=== PATIENT | female | born 1980 | race Caucasian/White ===

== ENCOUNTER 2017-05-22 23:13 | Observation (INO) | payer BC ==
[~2017-05-22] VITALS: Ht 157.5 cm; Wt 61.4 kg
[2017-05-22] MEDS ORDERED: BUSPIRONE HCL5 MG PO (23:28)
[2017-05-22] MEDS ORDERED: ADENOSINE 6 MG/2 ML VIAL IV ONE (23:30)
[2017-05-22] MEDS ORDERED: ASPIRIN 81 MG CHEW TAB PO STA (23:37)
[2017-05-22] MEDS ORDERED: SODIUM CHLORIDE 0.9% 1000ML 1,000 ML ONE (23:37)
[2017-05-22 23:38] LABS: BASOPHILS # (AUTO) 0.1 (0.0-0.1); BASOPHILS % 0.6 % (0.0-1.0); EOSINOPHILS # (AUTO) 0.2 (0.0-0.4); HEMATOCRIT 41.4 % (34.2-44.1); HEMOGLOBIN 14.1 g/dL (12.0-16.0); LYMPHOCYTES # (AUTO) 4.7 (1.0-3.2); MEAN CORPUSCULAR HEMOGLOBIN 29.3 pg (28-32); MEAN CORPUSCULAR HGB CONC 34.1 g/dL (31-35); MEAN CORPUSCULAR VOLUME 86.1 fL (81-99); MONOCYTES # (AUTO) 0.9 (0.2-0.8); MONOCYTES % 8.2 % (4.4-11.3); NEUTROPHILS # (AUTO) 5.2 (2.1-6.9); NEUTROPHILS % 46.9 % (38.7-80.0); PLATELET COUNT 334 x10e3/uL (140-360); RED BLOOD COUNT 4.81 x10e6/uL (3.6-5.1); RED CELL DISTRIBUTION WIDTH 13.3 % (11.7-14.4)
[2017-05-22] MEDS ORDERED: ASPIRIN 81 MG CHEW TAB ONE (23:45)
[2017-05-22] MEDS ORDERED: SODIUM CHLORIDE 0.9% 1000ML 1,000 ML IV ONE (23:45)
[2017-05-22] MEDS ORDERED: METOPROLOL TARTRATE INJ 1 MG/ML VIAL IV ONE (23:45)
[2017-05-22 23:50] LABS: MAGNESIUM 2.6 MG/DL (1.3-2.1)
[2017-05-22 23:57] LABS: ALANINE AMINOTRANSFERASE 15 IU/L (0-55); ALBUMIN 4.6 g/dL (3.5-5.0); ALBUMIN/GLOBULIN RATIO 1.5 (0.8-2.0); ALKALINE PHOSPHATASE 52 IU/L (40-150); ANION GAP 16.8 mmol/L (8-16); BLOOD UREA NITROGEN 16 mg/dL (7-26); BUN/CREATININE RATIO 22 (6-25); CALCIUM 9.5 mg/dL (8.4-10.2); CARBON DIOXIDE 20 mmol/L (22-29); CHLORIDE 106 mmol/L (98-107); CREATINE KINASE 176 IU/L (29-168); CREATININE, SERUM 0.73 mg/dL (0.57-1.11); EST GLOMERULAR FILTRATION RATE > 60 ML/MIN (60-); GLUCOSE 84 mg/dL (74-118); POTASSIUM 3.8 mmol/L (3.5-5.1); SODIUM 139 mmol/L (136-145)
[2017-05-23] MEDS: ACETAMINOPHEN 325 MG TAB PO PRN ×2 (00:03→09:05)
--- NOTE | 2017-05-23 00:07 | Diagnostic Imaging Report ---
EXAM: CHEST SINGLE (PORTABLE), AP 1 view INDICATION: Heart palpitations COMPARISON: None FINDINGS: LINES/TUBES: None LUNGS: No consolidations or edema. PLEURA: No effusions or pneumothorax. HEART AND MEDIASTINUM: Normal size and contour. BONES AND SOFT TISSUES: No acute findings. IMPRESSION: No acute thoracic abnormality. Signed by: Dr. Celina Robledo M.D. on 05/23/2017 12:03 AM
[2017-05-23 00:31] LABS: FREE THYROXINE INDEX 1.8611 (1.4-3.8); THYROID STIMULATING HORMONE 1.771 uIU/mL (0.350-4.940)
[2017-05-23] MEDS ORDERED: ONDANSETRON HCL INJ 2 MG/ML VIAL IV PRN (00:45)
[2017-05-23] MEDS ORDERED: ASPIRIN 81 MG CHEW TAB PO ONE (00:45)
[2017-05-23] MEDS ORDERED: SODIUM CHLORIDE FLUSH 10 ML SYR INJ PRN (00:45)
[2017-05-23] MEDS ORDERED: METOPROLOL TARTRATE 25 MG TAB PO SCH ×2 (00:45→09:00)
[2017-05-23] MEDS ORDERED: ONDANSETRON HCL INJ 2 MG/ML VIAL IV STA (01:02)
[2017-05-23] MEDS ORDERED: MORPHINE SULFATE 2 MG/ML SYR IV STA (01:02)
--- OUTSIDE RECORDS SUMMARY | 2017-05-23 01:07 | XMS REPORT ---
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 Allergies, Adverse Reactions, Alerts This patient has no known allergies or adverse reactions. Medications This patient has no known medications. Results Test Description Test Time Test Comments Text Results Atomic Results Result Comments CHEST SINGLE (PORTABLE) [place] [address] Patient Name: ILIANA BURNETT MR #: [id number] : 1980 Age/Sex: 36/F Req #: [id number] Adm Physician: Ordered by: WYATT PERSON MD Report #: [id number] Location: ER Room/Bed: Procedure: [id number] DX/CHEST SINGLE (PORTABLE) Exam Date: Exam Time: REPORT STATUS: Signed EXAM: CHEST SINGLE (PORTABLE ), AP 1 view INDICATION: Heart palpitations COMPARISON: None FINDINGS: LINES/TUBES: None LUNGS: No consolidations or edema. PLEURA: No effusions or pneumothorax. HEART AND MEDIASTINUM: Normal size and contour. BONES AND SOFT TISSUES: No acute findings. IMPRESSION: No acute thoracic abnormality. Signed by: Dr. Namita Arnold M.D. on 2017 12:03 AM Dictated By: NAMITA ARNOLD MD 0003 Transcribed By: ALISA on 05/23/17 0003 COPY TO: WYATT PERSON MD
[2017-05-23] MEDS ORDERED: METOPROLOL TARTRATE INJ 1 MG/ML VIAL IV ONE (01:15)
[2017-05-23] MEDS ORDERED: DIPHENHYDRAMINE HCL INJ 50 MG/ML VIAL ONE (01:58)
[2017-05-23] MEDS ORDERED: DIPHENHYDRAMINE HCL INJ 50 MG/ML VIAL IV ONE (02:00)
[2017-05-23] MEDS ORDERED: SODIUM CHLORIDE 0.9% 100 ML ONE (02:17)
[2017-05-23] MEDS ORDERED: IOPAMIDOL 370 MG/ML 200 ML INFUS..BTL INJ ONE (02:17)
--- NOTE | 2017-05-23 02:36 | Diagnostic Imaging Report ---
EXAM: CTA of the aorta with IV contrast INDICATION: Heart palpitations COMPARISON: None TECHNIQUE: Multidetector CT scanning of the chest was performed. Coronal and sagittal multiplanar reformations were obtained. CTA aorta protocol performed. 3-D reformations created on a separate workstation. IV Contrast: 100 cc Isovue-370 CTDIvol has been reviewed. It is below the limits set by the Radiation Protocol Committee (RPC). FINDINGS: LUNGS AND AIRWAYS: The trachea and major bronchi are unremarkable. No consolidations or edema. PLEURA: No effusions or pneumothorax. HEART, MEDIASTINUM, VESSELS: Normal. No evidence of a thoracic aortic dissection or aneurysm. UPPER ABDOMEN: Normal MUSCULOSKELETAL: No acute findings. Bilateral breast implants. IMPRESSION: Normal CTA of the chest. No evidence of an aortic dissection or aneurysm. Signed by: Dr. Celina Robledo M.D. on 05/23/2017 2:33 AM
[2017-05-23 03:05] VITALS: BP 127/59
[2017-05-23 03:30] VITALS: BP 127/59
[2017-05-23] MEDS: MORPHINE SULFATE 2 MG/ML SYR IV PRN ×2 (03:45→11:40)
[2017-05-23] MEDS: ONDANSETRON HCL INJ 2 MG/ML VIAL IV PRN ×2 (03:45→11:40)
[2017-05-23 05:00] VITALS: BP 121/59
[2017-05-23 07:47] VITALS: BP 125/59
[2017-05-23 08:51] LABS: CREATINE KINASE MB 6.9 ng/mL (0-5.0)
--- NOTE | 2017-05-23 10:25 | History and Physical ---
CHIEF COMPLAINT: Shortness of breath and dizziness. HPI: Ms. Brooks is a 36-year-old female who presented to the emergency room with dizziness and presyncopal episode. The patient was taking a bath and started having dizzy spell. She was found to be in SVT, and she received adenosine in the emergency room. She still has episodes of SVT. The patient reports that since she was 21 years of age she had episodes of dizziness where her heart rate jumps to very high and then it becomes normal. This time it was to a point that she started feeling dizzy. She came to the emergency room. She denies any chest pain, nausea, vomiting, or diarrhea. She is a smoker for 17 years of 1-pack per day. In the remote past around 20 years ago, she has used cocaine. No recent drug use. Drinks every day a couple of beers, but no history of heavy drinking. REVIEW OF SYSTEMS GENERAL: Denies any fever or chills. HEENT: Denies any head trauma. ENT: Denies any earaches. CV: Having dizziness but no shortness of breath or chest pain. RESPIRATORY: No shortness of breath. GI: Denies any nausea or vomiting. The rest of the review of systems are negative except as in HPI. PAST MEDICAL HISTORY: None. PAST SURGICAL HISTORY: None. FAMILY AND SOCIAL HISTORY: She lives with her . She has children. 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 She is a smoker. Occasionally drinks. PHYSICAL EXAMINATION VITAL SIGNS: Temperature 97.9, pulse 76, blood pressure 145/60, respiratory rate 18, O2 sat 96% on room air. SKIN: Warm and dry. HEENT: Head is atraumatic and normocephalic. Pupils reactive. NECK: Supple. CHEST: Clear to auscultation bilaterally. No wheezing. No crackles. HEART: S1 and S2 audible. ABDOMEN: Soft, nontender and nondistended. EXTREMITIES: No clubbing, cyanosis or edema. NEUROLOGIC: Awake and alert. No focal neurological deficits. LABS: White count of 11,000, hemoglobin 14.1 and platelets 334,000. Chemistry is within normal limits. Troponin 0.887. This morning it was 6.9. CK-MB has gone up from before. TSH and T4 has been normal. CTA of the chest is showing no dissection. ASSESSMENT AND PLAN: Ms. Brooks is a 36-year-old female with episodes of supraventricular tachycardia, high troponin that has been going on for 10+ years, but now getting worse. PLAN 1. Cardiology consult. I have discussed the case with Dr. Grijalva. She will evaluate the patient. May need electrophysiology evaluation. 2. Continue the patient on Tylenol and metoprolol for now. Discussed with the patient's at bedside in detail. Job#: [id number] FILIPPO
[2017-05-23 11:17] VITALS: BP 118/72
--- NOTE | 2017-05-23 14:10 | Consultation ---
DATE OF CONSULTATION: May 23, 2017 CARDIOLOGY CONSULTATION REQUESTING PHYSICIAN: Dr. Ortega. REASON FOR CONSULTATION: Chest pain and supraventricular tachycardia. HISTORY OF PRESENT ILLNESS: This is a 36-year-old woman without significant past medical history, who presented with complaints of palpitations, shortness of breath and presyncope. The patient reports that she has had multiple episodes of palpitations and presyncope since her 20s. However, no arrhythmias have ever been captured on EKG. She was evaluated at one time by a picture booker several years ago with a normal echocardiogram and stress test. Yesterday she developed palpitations associated with shortness of breath and presyncope. This time she had chest pain as well. The episode lasted 30 to 45 minutes and did not spontaneously resolve like usual; so, she presented to the ER for further evaluation. She denies any edema, orthopnea or PND. In the ER, she was found to have a supraventricular tachycardia with heart rates in the 200s. She was given 6 mg of IV adenosine with conversion back to normal sinus rhythm. REVIEW OF SYSTEMS: Negative except as per HPI. PAST MEDICAL HISTORY: None. PAST SURGICAL HISTORY 1. Tubal ligation. 2. Breast implant. SOCIAL HISTORY: Smokes approximately 1 pack a day since the age of 15. Occasional alcohol and remote cocaine use. FAMILY HISTORY: Noncontributory. ALLERGIES: PLEASE SEE EMR. MEDICATIONS: Please see medication list. PHYSICAL EXAMINATION VITAL SIGNS: Temperature 97.5 degrees, pulse 64, respiratory rate 20, blood pressure 118/72, oxygen saturation 100% on room air. GENERAL: A well-developed, well-nourished woman in no acute distress. Awake and alert. HEENT: Normocephalic, atraumatic. Pupils equal, no scleral icterus. NECK: Supple. No thyromegaly or cervical lymphadenopathy, no carotid bruits. LUNGS: Clear to auscultation bilaterally. No wheezes or crackles. CARDIOVASCULAR: Normal rate, regular rhythm. No murmur. Normal S1 and S2. ABDOMEN: Soft, nontender. EXTREMITIES: No edema. NEURO: Nonfocal exam. LABS: WBC 11.17, hemoglobin 14.1, hematocrit 41.4, platelets 334. Sodium 139, potassium 3.8, chloride 106, CO2 20, BUN 16, creatinine 0.73. Troponin less than 0.001, troponin I 0.887. TSH 1.771. EKG: Supraventricular tachycardia with rate at 219. Second EKG normal sinus rhythm with possible left atrial enlargement, LVH with repolarization abnormality. CHEST X-RAY: No acute thoracic abnormality. CTA OF THE CHEST: Normal CTA of the chest. No evidence of aortic dissection or aneurysm. IMPRESSION 1. Supraventricular tachycardia. 2. Elevated troponin. 3. Tobacco abuse. RECOMMENDATIONS: Monitor patient on telemetry. Start metoprolol tartrate 25 mg p.o. b.i.d. Obtain echocardiogram. Elevated troponin is most likely demand ischemia in the setting of supraventricular tachycardia with heart rates in the 200s. Trend cardiac enzymes until they are downtrending. She will need ischemic evaluation. Thank you for this consult. We will continue to follow. Job#: [id number] EV
[2017-05-23 15:43] VITALS: BP 117/56
[2017-05-23 17:42] LABS: CREATINE KINASE MB 4.3 ng/mL (0-5.0)
[2017-05-23] MEDS ORDERED: METOPROLOL TART25 MG PO (18:10)
== END 2017-05-23 18:38 | disposition home or self-care (01) ==
LOC: ER 23:13 → ERHOLD 05-23 01:05 → IMCU 05-23 02:40
PROVIDERS: ADMIT Internal Medicine; ATTEND Internal Medicine
DX: I47.1 Supraventricular tachycardia (principal); R00.2 Palpitations; Z72.0 Tobacco use
CPT/HCPCS: 36415; 36430; 71045; 71275; 80053; 80320; 82550 ×2; 82553 ×2; 82948; 83735; 84436; 84443; 84479; 84484 ×2; 85025; 93005; 93306; 96360; 96374; 99284; G0378; J0153; J1200; J2270; J2405; J7030; J7050; Q9967

== ENCOUNTER 2017-06-03 22:59 | Emergency (ER) | payer BC ==
[~2017-06-03] VITALS: Ht 157.5 cm; Wt 61.2 kg
[~2017-06-03 22:59] MED LIST: BUSPIRONE HCL5 MG PO; METOPROLOL TART25 MG PO
[2017-06-03] MEDS ORDERED: ADENOSINE 6 MG/2 ML VIAL IV ONE (23:00)
[2017-06-03] MEDS ORDERED: SODIUM CHLORIDE 0.9% 1000ML 1,000 ML IV ONE (23:00)
[2017-06-03] MEDS ORDERED: SODIUM CHLORIDE 0.9% 1000ML 1,000 ML ONE (23:01)
--- OUTSIDE RECORDS SUMMARY | 2017-06-03 23:01 | XMS REPORT | Continuity of Care Document ---
Author Author [facility] Organization [facility] Address [address] [place] [address] Phone Unavailable Care Team Providers Care Medical Supply Technician Name Role Phone JULIETA VARGAS MD PCP Insurance Providers Guarantor Sadia Burnett Address [address] [place] [address] Email [email or web address] Policy Number [id number] Subscriber's Name ToddDen Justina G8 Other Relationship Group Number [id number] Group Name [employer] Effective Date 15 Advance Directives Directive Response Recorded Date/Time Does the patient have an advance directive? No 05/23/17 4:00am If yes, is advance directive on file with [facility]? No 05/23/17 4:00am If not on file with [facility] will patient provide a copy? No 05/23/17 4:00am Do you have a Directive to Physician? No 05/22/17 11:12pm Do you have a Medical Power of Radiator Specialist? No 05/22/17 11:12pm Do you have an out of hospital Do Not Resuscitate Order? No 05/22/17 11:12pm Do you have any special needs we should be aware of? No 05/22/17 11:12pm Do you have a support person here with you today? Yes 05/22/17 11:12pm Did patient receive Notice of Privacy Practices? Yes 05/22/17 11:12pm Did patient receive patient rights and responsibilities? Yes 05/22/17 11:12pm Problems Medical Problem Onset Date Status Chest pain Unknown SVT (supraventricular tachycardia) Unknown Medications Current Home Medications Medication Dose Units Route Directions Days Qty Instructions Start Date Buspirone Hcl 5 Mg Tablet 5 Mg Oral Daily 60 Tab Metoprolol Tartrate 25 Mg Tablet 25 Mg Oral Twice A Day Social History Social History Problem Response Recorded Date/Time Onset Date Status Hx Psychiatric Problems No 05/23/2017 4:00am Not Applicable Not Applicable Smoking Status Start Date Stop Date Never Smoker Hospital Discharge Instructions No hospital discharge instruction information available. Plan of Care Discharge Date 05/23/17 6:38pm Disposition HOME, SELF-CARE Instructions/Education Provided Supraventricular Tachycardia Chest Pain - Noncardiac Chest Pain - Chest Wall Supraventricular Tachycardia Prescriptions See Medication Section Referrals EBONI GRIJALVA MD (Cardiology) Order Date: 1 Week Entered Date: 05/23/2017 6:02pm Address: [address] [place] [id number] Additional Instructions/Education Follow-up with Dr. Grijalva in 1 week. Functional Status Query Response Date Recorded Assistive Devices None May 23, 2017 3:30am Ambulation Ability Independent May 23, 2017 3:30am Toileting Ability Independent May 23, 2017 3:30am Allergies, Adverse Reactions, Alerts No known allergies. Immunizations No immunization information available. Vital Signs Acute Vital Signs Vital Response Date/Time Temperature (Fahrenheit) 97.8 degrees F (97.6 - 99.5) 05/23/2017 3:43pm Pulse Pulse Rate (adult) 68 bpm (60 - 90) 05/23/2017 3:43pm Respiratory Rate 19 bpm (12 - 24) 05/23/2017 3:43pm Blood Pressure 117/56 mm Hg 05/23/2017 3:43pm Height 5 ft 2 in 05/22/2017 11:25pm Weight 135.31 lb 05/23/2017 3:05am Body Mass Index 24.7 kg/m^2 05/23/2017 4:00am Results Laboratory Results Test Name Result Units Flags Reference Collection Date/Time Result Date/ Time Comments White Blood Count 11.17 x10e3/uL H 4.8-10.8 05/22/2017 11:30pm 2017 11:43pm Red Blood Count 4.81 x10e6/uL 3.6-5.1 05/22/2017 11:30pm 05/22/2017 11: 43pm Hemoglobin 14.1 g/dL 12.0-16.0 05/22/2017 11:30pm 05/22/2017 11:43pm Hematocrit 41.4 % 34.2-44.1 05/22/2017 11:30pm 05/22/2017 11:43pm Mean Corpuscular Volume 86.1 fL 81-99 05/22/2017 11:30pm 05/22/2017 11: 43pm Mean Corpuscular Hemoglobin 29.3 pg 28-32 05/22/2017 11:30pm 2017 11:43pm Mean Corpuscular Hemoglobin Concent 34.1 g/dL 31-35 05/22/2017 11:30pm 05/22/2017 11:43pm Red Cell Distribution Width 13.3 % 11.7-14.4 05/22/2017 11:30pm 2017 11:43pm Platelet Count 334 x10e3/uL 140-360 05/22/2017 11:30pm 05/22/2017 11: 43pm Neutrophils (%) (Auto) 46.9 % 38.7-80.0 05/22/2017 11:30pm 05/22/2017 11:43pm Lymphocytes (%) (Auto) 42.0 % H 18.0-39.1 05/22/2017 11:30pm 05/22/2017 11:43pm Monocytes (%) (Auto) 8.2 % 4.4-11.3 05/22/2017 11:30pm 05/22/2017 11: 43pm Eosinophils (%) (Auto) 2.0 % 0.0-6.0 05/22/2017 11:30pm 05/22/2017 11: 43pm Basophils (%) (Auto) 0.6 % 0.0-1.0 05/22/2017 11:30pm 05/22/2017 11: 43pm IM GRANULOCYTES % 0.3 % 0.0-1.0 05/22/2017 11:30pm 05/22/2017 11:43pm Neutrophils # (Auto) 5.2 2.1-6.9 05/22/2017 11:30pm 05/22/2017 11: 43pm Lymphocytes # (Auto) 4.7 H 1.0-3.2 05/22/2017 11:30pm 05/22/2017 11: 43pm Monocytes # (Auto) 0.9 H 0.2-0.8 05/22/2017 11:30pm 05/22/2017 11: 43pm Eosinophils # (Auto) 0.2 0.0-0.4 05/22/2017 11:30pm 05/22/2017 11: 43pm Basophils # (Auto) 0.1 0.0-0.1 05/22/2017 11:30pm 05/22/2017 11:43pm Absolute Immature Granulocyte (auto 0.03 x10e3/uL 0-0.1 05/22/2017 11: 30pm 05/22/2017 11:43pm Sodium Level 139 mmol/L 136-145 05/22/2017 11:30pm 05/22/2017 11:58pm Potassium Level 3.8 mmol/L 3.5-5.1 05/22/2017 11:30pm 05/22/2017 11: 58pm Chloride Level 106 mmol/L 98-107 05/22/2017 11:30pm 05/22/2017 11:58pm Carbon Dioxide Level 20 mmol/L L 22-05/22/2017 11:30pm 05/22/2017 11: 58pm Anion Gap 16.8 mmol/L H 8-05/22/2017 11:30pm 05/22/2017 11:58pm Blood Urea Nitrogen 16 mg/dL 7-05/22/2017 11:30pm 05/22/2017 11: 58pm Creatinine 0.73 mg/dL 0.57-1.11 05/22/2017 11:30pm 05/22/2017 11:58pm BUN/Creatinine Ratio 22 6-05/22/2017 11:30pm 05/22/2017 11:58pm Estimat Glomerular Filtration Rate > 60 ML/MIN 60- 05/22/2017 11:30pm 05/22/2017 11:58pm Ranges were taken from the National Kidney Disease Education Program and the National Kidney Foundation literature. Reference ranges: 60 or greater: Normal 16-59 (for 3 consecutive months): Chronic kidney disease 15 or less: Kidney failure Glucose Level 84 mg/dL 74-118 05/22/2017 11:30pm 05/22/2017 11:58pm Calcium Level 9.5 mg/dL 8.4-10.2 05/22/2017 11:30pm 05/22/2017 11:58pm Magnesium Level 2.6 MG/DL H 1.3-2.1 05/22/2017 11:30pm 05/22/2017 11: 56pm Total Bilirubin 0.2 mg/dL 0.2-1.2 05/22/2017 11:30pm 05/22/2017 11: 58pm Aspartate Amino Transf (AST/SGOT) 20 IU/L 5-34 05/22/2017 11:30pm 05/22 11:58pm Alanine Aminotransferase (ALT/SGPT) 15 IU/L 0-55 05/22/2017 11:30pm 11:58pm Total Protein 7.6 g/dL 6.5-8.1 05/22/2017 11:30pm 05/22/2017 11:58pm Albumin 4.6 g/dL 3.5-5.0 05/22/2017 11:30pm 05/22/2017 11:58pm Globulin 3.0 g/dL 2.3-3.5 05/22/2017 11:30pm 05/22/2017 11:58pm Albumin/Globulin Ratio 1.5 0.8-2.0 05/22/2017 11:30pm 05/22/2017 11: 58pm Alkaline Phosphatase 52 IU/L 40-150 05/22/2017 11:30pm 05/22/2017 11: 58pm Creatine Kinase 150 IU/L 29-168 05/23/2017 5:00pm 05/23/2017 5:36pm Creatine Kinase MB 4.30 ng/mL 0-5.0 05/23/2017 5:00pm 05/23/2017 5: 42pm Troponin I 0.438 ng/mL H 0-0.300 05/23/2017 5:00pm 05/23/2017 5:42pm Free Thyroxine Index 1.8611 1.4-3.8 05/22/2017 11:30pm 05/23/2017 12: 53am Thyroxine (T4) 6.09 ug/dL 4.5-10.9 05/22/2017 11:30pm 05/23/2017 12: 53am Our current method for Total T4 is not recommended for use as the only marker for evaluating patients for thyroid disorders. Triiodothyronine (T3) Uptake 30.56 % 22.5-37.0 05/22/2017 11:30pm 05/23 12:53am Thyroid Stimulating Hormone (TSH) 1.771 uIU/mL 0.350-4.940 05/22/2017 11 :30pm 05/23/2017 12:53am Ethyl Alcohol Level 100.5 mg/dL H 0.0-10.0 05/22/2017 11:30pm 2017 11:58pm Procedures Procedure Status Date Provider(s) CT angiography of chest Active 05/23/17 WYATT PERSON MD Encounters Encounter Location Arrival/Admit Date Discharge/Depart Date Attending Provider Discharged Inpatient (obs) [facility] 05/23/17 1:05am 6:38pm JERMAINE ANN MD
[2017-06-03 23:31] LABS: BASOPHILS # (AUTO) 0.1 (0.0-0.1); BASOPHILS % 0.7 % (0.0-1.0); EOSINOPHILS # (AUTO) 0.1 (0.0-0.4); EOSINOPHILS % 1.3 % (0.0-6.0); HEMATOCRIT 37.4 % (34.2-44.1); HEMOGLOBIN 13.1 g/dL (12.0-16.0); LYMPHOCYTES # (AUTO) 4.8 (1.0-3.2); LYMPHOCYTES % 43.9 % (18.0-39.1); MEAN CORPUSCULAR HEMOGLOBIN 29.4 pg (28-32); MONOCYTES # (AUTO) 0.8 (0.2-0.8); MONOCYTES % 7.5 % (4.4-11.3); NEUTROPHILS # (AUTO) 5.1 (2.1-6.9); NEUTROPHILS % 46.2 % (38.7-80.0); PLATELET COUNT 392 x10e3/uL (140-360); RED BLOOD COUNT 4.45 x10e6/uL (3.6-5.1); RED CELL DISTRIBUTION WIDTH 13.1 % (11.7-14.4)
[2017-06-03 23:48] LABS: ALANINE AMINOTRANSFERASE 11 IU/L (0-55); ALBUMIN/GLOBULIN RATIO 1.3 (0.8-2.0); ALKALINE PHOSPHATASE 51 IU/L (40-150); ANION GAP 17.4 mmol/L (8-16); BLOOD UREA NITROGEN 10 mg/dL (7-26); BUN/CREATININE RATIO 12 (6-25); CALCIUM 9.4 mg/dL (8.4-10.2); CARBON DIOXIDE 21 mmol/L (22-29); CHLORIDE 102 mmol/L (98-107); CREATINE KINASE 210 IU/L (29-168); CREATININE, SERUM 0.85 mg/dL (0.57-1.11); EST GLOMERULAR FILTRATION RATE > 60 ML/MIN (60-); GLUCOSE 86 mg/dL (74-118); POTASSIUM 3.4 mmol/L (3.5-5.1); SODIUM 137 mmol/L (136-145)
[2017-06-04 00:13] LABS: CLARITY,URINE CLEAR (CLEAR); COLOR,URINE YELLOW (YELLOW)
[2017-06-04 00:14] LABS: AMPHETAMINES SCREEN,URINE NEGATIVE (NEGATIVE); BENZODIAZEPINES SCREEN,URINE NEGATIVE (NEGATIVE); BILIRUBIN,URINE NEGATIVE (NEGATIVE); KETONES,URINE NEGATIVE (NEGATIVE); LEUKOCYTE ESTERASE ,URINE NEGATIVE (NEGATIVE); NITRITE,URINE NEGATIVE (NEGATIVE); PHENCYCLIDINE SCREEN,URINE NEGATIVE (NEGATIVE); PREGNANCY TEST, URINE NEGATIVE (NEGATIVE); PROTEIN,URINE DIPSTICK NEGATIVE (NEGATIVE); URINE UROBILINOGEN 0.2 mg/dL (0.2 - 1)
[2017-06-04 00:20] LABS: BACTERIA,URINE FEW /HPF; EPITHELIAL CELLS,URINE FEW /LPF; RBC,URINE 0-5 /HPF (0-5); WBC,URINE (MAN) 0-5 /HPF (0-5)
[2017-06-04] MEDS ORDERED: POTASSIUM CHLORIDE 20 MEQ TAB CR PO STA (00:21)
--- NOTE | 2017-06-04 00:24 | Diagnostic Imaging Report ---
EXAMINATION: CHEST SINGLE (PORTABLE) INDICATION: Supraventricular tachycardia COMPARISON: 05/22/2017 FINDINGS: TUBES and LINES: None. LUNGS: Lungs are well inflated. Lungs are clear. There is no evidence of pneumonia or pulmonary edema. PLEURA: No pleural effusion or pneumothorax. HEART AND MEDIASTINUM: The cardiomediastinal silhouette is unremarkable. BONES AND SOFT TISSUES: No acute osseous lesion. Soft tissues are unremarkable. UPPER ABDOMEN: No free air under the diaphragm. IMPRESSION: No acute thoracic abnormality. Signed by: Dr. Brandon Gunter M.D. on 06/04/2017 12:21 AM
[2017-06-06] MEDS ORDERED: FAMOTIDINE20 MG PO (07:21)
[2017-06-06] MEDS ORDERED: ASPIRIN EC81 MG PO (07:21)
[2017-06-06] MEDS ORDERED: METOPROLOL TART50 MG PO (07:21)
== END 2017-06-04 01:08 | disposition home or self-care (01) ==
LOC: ER 22:59
DX: R07.9 Chest pain, unspecified (principal); I49.8 Other specified cardiac arrhythmias; I47.1 Supraventricular tachycardia; F10.129 Alcohol abuse with intoxication, unspecified
CPT/HCPCS: 36415; 71045; 80053; 80307; 80320; 81001; 81025; 82550; 82553; 84484; 85025; 93005; 99284; J7030

== ENCOUNTER 2017-06-04 20:30 | Observation (INO) | payer BC ==
[~2017-06-04] VITALS: Ht 157.5 cm; Wt 58.5 kg
--- OUTSIDE RECORDS SUMMARY | 2017-06-04 20:33 | XMS REPORT | Continuity of Care Document ---
Author Author [facility] Organization [facility] Address [address] [place] [address] Phone Unavailable Care Team Providers Care Ccnp Name Role Phone JULIETA VARGAS MD PCP Insurance Providers Guarantor Sadia Brooks Address [address] [place] [address] Email [email or web address] Payer Rust Policy Number [id number] Subscriber's Name Den Brooks G8 Other Relationship Group Number [id number] Group Name [employer] Effective Date 05/09/15 Advance Directives Directive Response Recorded Date/Time Does the patient have an advance directive? No 05/23/17 4:00am If yes, is advance directive on file with [facility]? No 05/23/17 4:00am If not on file with [facility] will patient provide a copy? No 05/23/17 4:00am Do you have a Directive to Physician? No 06/03/17 10:58pm Do you have a Medical Power of Track Repair Worker? No 06/03/17 10:58pm Do you have an out of hospital Do Not Resuscitate Order? No 06/03/17 10:58pm Do you have any special needs we should be aware of? No 06/03/17 10:58pm Do you have a support person here with you today? Yes 06/03/17 10:58pm Did patient receive Notice of Privacy Practices? Yes 06/03/17 10:58pm Did patient receive patient rights and responsibilities? Yes 06/03/17 10:58pm Problems Medical Problem Onset Date Status Chest [...] information available. Plan of Care Discharge Date 06/04/17 1:08am Disposition HOME, SELF-CARE Condition at Discharge Stable Instructions/Education Provided Supraventricular Tachycardia Alcohol Intoxication Forms Provided Work/School Excuse Prescriptions See Medication Section Referrals JULIETA VARGAS MD Order Date: Call for an appointment Address: [address] [place], [place] [id number] Additional Instructions/Education FOLLOW UP WITH PCP RETURN TO THE ER NEEDED Functional Status No functional status information available. Allergies, Adverse Reactions, Alerts No known allergies. Immunizations No immunization information available. Vital Signs Acute Vital Signs Vital Response Date/Time Temperature (Fahrenheit) 97.8 degrees F (97.6 - 99.5) 05/23/2017 3:43pm Pulse Pulse Rate (adult) 68 bpm (60 - 90) 05/23/2017 3:43pm Respiratory Rate 19 bpm (12 - 24) 05/23/2017 3:43pm Blood Pressure 117/56 mm Hg 05/23/2017 3:43pm Height 5 ft 2 in 06/03/2017 11:01pm Weight 135 lb 06/03/2017 11:01pm Body Mass Index 24.7 kg/m^2 06/03/2017 11:01pm Results Laboratory Results Test Name Result Units Flags Reference Collection Date/Time Result Date/ Time Comments Bedside Glucose 122 mg/dL H 70-120 05/25/2017 3:42pm 05/25/2017 3:59pm Meter ID: [id number] Magnesium Level 2.6 MG/DL H 1.3-2.1 05/22/2017 11:30pm 05/22/2017 11: 56pm Free Thyroxine Index 1.8611 1.4-3.8 05/22/2017 11:30pm 05/23/2017 12: 53am Thyroxine (T4) 6.09 ug/dL 4.5-10.9 05/22/2017 11:30pm 05/23/2017 12: 53am Our current method for Total T4 is not recommended for use as the only marker for evaluating patients for thyroid disorders. Triiodothyronine (T3) Uptake 30.56 % 22.5-37.0 05/22/2017 11:30pm 05/23 12:53am Thyroid Stimulating Hormone (TSH) 1.771 uIU/mL 0.350-4.940 05/22/2017 11 :30pm 05/23/2017 12:53am White Blood Count 10.98 x10e3/uL H 4.8-10.8 06/03/2017 11:11pm 2017 11:34pm Red Blood Count 4.45 x10e6/uL 3.6-5.1 06/03/2017 11:11pm 06/03/2017 11: 34pm Hemoglobin 13.1 g/dL 12.0-16.0 06/03/2017 11:11pm 06/03/2017 11:34pm Hematocrit 37.4 % 34.2-44.1 06/03/2017 11:11pm 06/03/2017 11:34pm Mean Corpuscular Volume 84.0 fL 81-99 06/03/2017 11:1106/03/2017 11: 34pm Mean Corpuscular Hemoglobin 29.4 pg 28-32 06/03/2017 11:11pm 2017 11:34pm Mean Corpuscular Hemoglobin Concent 35.0 g/dL 31-35 06/03/2017 11:11pm 06/03/2017 11:34pm Red Cell Distribution Width 13.1 % 11.7-14.4 06/03/2017 11:11pm 2017 11:34pm Platelet Count 392 x10e3/uL H 140-360 06/03/2017 11:11pm 06/03/2017 11: 34pm Neutrophils (%) (Auto) 46.2 % 38.7-80.0 06/03/2017 11:11pm 06/03/2017 11:34pm Lymphocytes (%) (Auto) 43.9 % H 18.0-39.1 06/03/2017 11:11pm 06/03/2017 11:34pm Monocytes (%) (Auto) 7.5 % 4.4-11.3 06/03/2017 11:11pm 06/03/2017 11: 34pm Eosinophils (%) (Auto) 1.3 % 0.0-6.0 06/03/2017 11:11pm 06/03/2017 11: 34pm Basophils (%) (Auto) 0.7 % 0.0-1.0 06/03/2017 11:11pm 06/03/2017 11: 34pm IM GRANULOCYTES % 0.4 % 0.0-1.0 06/03/2017 11:11pm 06/03/2017 11:34pm Neutrophils # (Auto) 5.1 2.1-6.9 06/03/2017 11:11pm 06/03/2017 11: 34pm Lymphocytes # (Auto) 4.8 H 1.0-3.2 06/03/2017 11:11pm 06/03/2017 11: 34pm Monocytes # (Auto) 0.8 0.2-0.8 06/03/2017 11:11pm 06/03/2017 11:34pm Eosinophils # (Auto) 0.1 0.0-0.4 06/03/2017 11:11pm 06/03/2017 11: 34pm Basophils # (Auto) 0.1 0.0-0.1 06/03/2017 11:11pm 06/03/2017 11:34pm Absolute Immature Granulocyte (auto 0.04 x10e3/uL 0-0.1 06/03/2017 11: 11pm 06/03/2017 11:34pm Urine Color YELLOW YELLOW 06/04/2017 12:01am 06/04/2017 12:14am Urine Clarity CLEAR CLEAR 06/04/2017 12:01am 06/04/2017 12:14am Urine Specific [place] 1.010 1.010-1.025 06/04/2017 12:01am 2017 12:14am Urine pH 7 5 - 7 06/04/2017 12:01am 06/04/2017 12:14am Urine Leukocyte Esterase NEGATIVE NEGATIVE 06/04/2017 12:01am 2017 12:14am Urine Nitrite NEGATIVE NEGATIVE 06/04/2017 12:01am 06/04/2017 12: 14am Urine Protein NEGATIVE NEGATIVE 06/04/2017 12:01am 06/04/2017 12: 14am Urine Glucose (UA) NEGATIVE NEGATIVE 06/04/2017 12:01am 06/04/2017 12 :14am Urine Ketones NEGATIVE NEGATIVE 06/04/2017 12:01am 06/04/2017 12: 14am Urine Opiates Screen NEGATIVE NEGATIVE 06/04/2017 12:01am 06/04/2017 12:14am Urine Barbiturates Screen NEGATIVE NEGATIVE 06/04/2017 12:01am 2017 12:14am Urine Phencyclidine Screen NEGATIVE NEGATIVE 06/04/2017 12:01am 06/04 12:14am Urine Amphetamines Screen NEGATIVE NEGATIVE 06/04/2017 12:01am 2017 12:14am Urine Methamphetamines Screen NEGATIVE NEGATIVE 06/04/2017 12:01am 12:14am Urine Benzodiazepines Screen NEGATIVE NEGATIVE 06/04/2017 12:01am 12:14am Urine Cocaine Screen NEGATIVE NEGATIVE 06/04/2017 12:01am 06/04/2017 12:14am Urine Cannabinoids Screen NEGATIVE NEGATIVE 06/04/2017 12:01am 2017 12:14am THESE RESULTS ARE FOR MEDICAL TREATMENT ONLY *THIS REPORT CONTAINS UNCONFIRMED SCREENING RESULTS* POSITIVE RESULTS WILL BE CONFIRMED BY REFERENCE LAB UPON REQUEST CUT-OFF DRUG CLASS CONCENTRATION ng/mL Amphetamines 1000 Methamphetamines 1000 Cocaine 300 Opiate 300 Phencyclidine 25 Cannabinoid 50 Barbiturates 300 Benzodiazepine 300 Methadone 300 Urine Methadone Screen NEGATIVE NEGATIVE 06/04/2017 12:01am 2017 12:14am THESE RESULTS ARE FOR MEDICAL TREATMENT ONLY *THIS REPORT CONTAINS UNCONFIRMED SCREENING RESULTS* POSITIVE RESULTS WILL BE CONFIRMED BY REFERENCE LAB UPON REQUEST CUT-OFF DRUG CLASS CONCENTRATION ng/mL Amphetamines 1000 Methamphetamines 1000 Cocaine Metabolite 300 Opiate 300 Phencyclidine 25 Cannabinoid 50 Barbiturates 300 Benzodiazepine 300 Methadone 300 Urine Urobilinogen 0.2 mg/dL 0.2 - 1 06/04/2017 12:01am 06/04/2017 12: 14am Urine Bilirubin NEGATIVE NEGATIVE 06/04/2017 12:0106/04/2017 12: 14am Urine Blood 2+ H NEGATIVE 06/04/2017 12:0106/04/2017 12:14am Urine WBC 0-5 /HPF 0-5 06/04/2017 12:0106/04/2017 12:20am Urine RBC 0-5 /HPF 0-5 06/04/2017 12:01am 06/04/2017 12:20am Urine Bacteria FEW /HPF NONE 06/04/2017 12:0106/04/2017 12:20am Urine Epithelial Cells FEW /LPF NONE 06/04/2017 12:0106/04/2017 12: 20am Urine Test NEGATIVE NEGATIVE 06/04/2017 12:0106/04/2017 12:14am Sodium Level 137 mmol/L 136-145 06/03/2017 11:11pm 06/03/2017 11:54pm Potassium Level 3.4 mmol/L L 3.5-5.1 06/03/2017 11:11pm 06/03/2017 11: 54pm Chloride Level 102 mmol/L 98-107 06/03/2017 11:11pm 06/03/2017 11:54pm Carbon Dioxide Level 21 mmol/L L 22-06/03/2017 11:11pm 06/03/2017 11: 54pm Anion Gap 17.4 mmol/L H 8-16 06/03/2017 11:11pm 06/03/2017 11:54pm Blood Urea Nitrogen 10 mg/dL 7-06/03/2017 11:11pm 06/03/2017 11: 54pm Creatinine 0.85 mg/dL 0.57-1.11 06/03/2017 11:11pm 06/03/2017 11:54pm BUN/Creatinine Ratio 12 6-06/03/2017 11:11pm 06/03/2017 11:54pm Estimat Glomerular Filtration Rate > 60 ML/MIN 60- 06/03/2017 11:11pm 06/03/2017 11:54pm Ranges were taken from the National Kidney Disease Education Program and the National Kid[employer] Foundation literature. Reference ranges: 60 or greater: Normal 16-59 (for 3 consecutive months): Chronic kidney disease 15 or less: Kidney failure Glucose Level 86 mg/dL 74-118 06/03/2017 11:11pm 06/03/2017 11:54pm Calcium Level 9.4 mg/dL 8.4-10.2 06/03/2017 11:11pm 06/03/2017 11:54pm Total Bilirubin 0.3 mg/dL 0.2-1.2 06/03/2017 11:11pm 06/03/2017 11: 54pm Aspartate Amino Transf (AST/SGOT) 18 IU/L 5-34 06/03/2017 11:11pm 06/03 11:54pm Alanine Aminotransferase (ALT/SGPT) 11 IU/L 0-55 06/03/2017 11:11pm 11:54pm Total Protein 7.1 g/dL 6.5-8.1 06/03/2017 11:11pm 06/03/2017 11:54pm Albumin 4.0 g/dL 3.5-5.0 06/03/2017 11:11pm 06/03/2017 11:54pm Globulin 3.1 g/dL 2.3-3.5 06/03/2017 11:11pm 06/03/2017 11:54pm Albumin/Globulin Ratio 1.3 0.8-2.0 06/03/2017 11:11pm 06/03/2017 11: 54pm Alkaline Phosphatase 51 IU/L 40-150 06/03/2017 11:11pm 06/03/2017 11: 54pm Creatine Kinase 210 IU/L H 29-168 06/03/2017 11:11pm 06/03/2017 11:54pm Creatine Kinase MB 1.00 ng/mL 0-5.0 06/03/2017 11:11pm 06/03/2017 11: 58pm Troponin I < 0.001 ng/mL 0-0.300 06/03/2017 11:11pm 06/03/2017 11:58pm Ethyl Alcohol Level 180.2 mg/dL H 0.0-10.0 06/03/2017 11:11pm 2017 11:54pm Procedures Procedure Status Date Provider(s) CT angiography of chest Active 05/23/17 WYATT PERSON MD Encounters Encounter Location Arrival/Admit Date Discharge/Depart Date Attending Provider Departed Emergency Room [facility] 06/03/17 10:59pm 06/04 1:08am WYATT PERSON MD Discharged Inpatient (obs) [facility] 05/23/17 1:05am 6:38pm JERMAINE ANN MD
--- NOTE | 2017-06-04 21:21 | Diagnostic Imaging Report ---
EXAMINATION: CHEST SINGLE (PORTABLE) INDICATION: Chest pain. COMPARISON: None FINDINGS: TUBES and LINES: None. LUNGS: Lungs are well inflated. Lungs are clear. There is no evidence of pneumonia or pulmonary edema. PLEURA: No pleural effusion or pneumothorax. HEART AND MEDIASTINUM: The cardiomediastinal silhouette is unremarkable. BONES AND SOFT TISSUES: No acute osseous lesion. Dextroscoliosis of the midthoracic spine. Soft tissues are unremarkable. UPPER ABDOMEN: No free air under the diaphragm. IMPRESSION: No acute thoracic abnormality. Signed by: Dr. Brandon Gunter M.D. on 06/04/2017 9:17 PM
[2017-06-04] MEDS ORDERED: KETOROLAC TROMETHAMINE 30 MG/ML VIAL IV STA (21:30)
[2017-06-04 21:52] LABS: BASOPHILS # (AUTO) 0.1 (0.0-0.1); BASOPHILS % 0.7 % (0.0-1.0); EOSINOPHILS # (AUTO) 0.2 (0.0-0.4); EOSINOPHILS % 1.7 % (0.0-6.0); HEMATOCRIT 39.9 % (34.2-44.1); HEMOGLOBIN 13.4 g/dL (12.0-16.0); LYMPHOCYTES # (AUTO) 3.7 (1.0-3.2); LYMPHOCYTES % 42.2 % (18.0-39.1); MEAN CORPUSCULAR HGB CONC 33.6 g/dL (31-35); MEAN CORPUSCULAR VOLUME 86.4 fL (81-99); MONOCYTES # (AUTO) 0.7 (0.2-0.8); MONOCYTES % 7.9 % (4.4-11.3); NEUTROPHILS # (AUTO) 4.2 (2.1-6.9); NEUTROPHILS % 47.2 % (38.7-80.0); PLATELET COUNT 386 x10e3/uL (140-360); RED BLOOD COUNT 4.62 x10e6/uL (3.6-5.1); RED CELL DISTRIBUTION WIDTH 13.3 % (11.7-14.4)
[2017-06-04 22:06] LABS: ALANINE AMINOTRANSFERASE 12 IU/L (0-55); ALBUMIN 4.2 g/dL (3.5-5.0); ALBUMIN/GLOBULIN RATIO 1.2 (0.8-2.0); ALKALINE PHOSPHATASE 51 IU/L (40-150); ANION GAP 15.8 mmol/L (8-16); CALCIUM 9.7 mg/dL (8.4-10.2); CARBON DIOXIDE 22 mmol/L (22-29); CHLORIDE 103 mmol/L (98-107); CREATINE KINASE 210 IU/L (29-168); CREATININE, SERUM 0.73 mg/dL (0.57-1.11); EST GLOMERULAR FILTRATION RATE > 60 ML/MIN (60-); GLUCOSE 86 mg/dL (74-118); POTASSIUM 3.8 mmol/L (3.5-5.1); SODIUM 137 mmol/L (136-145)
[2017-06-04 22:24] LABS: BLOOD UREA NITROGEN 16.4 mg/dL (7-26); BUN/CREATININE RATIO 22 (6-25)
[2017-06-04 22:27] LABS: FREE THYROXINE INDEX 2.4957 (1.4-3.8); THYROID STIMULATING HORMONE 2.315 uIU/mL (0.350-4.940)
[2017-06-04 22:41] LABS: COLOR,URINE YELLOW (YELLOW)
[2017-06-04 22:42] LABS: CLARITY,URINE HAZY (CLEAR)
[2017-06-04 22:46] LABS: AMPHETAMINES SCREEN,URINE NEGATIVE (NEGATIVE); BENZODIAZEPINES SCREEN,URINE NEGATIVE (NEGATIVE); KETONES,URINE NEGATIVE (NEGATIVE); LEUKOCYTE ESTERASE ,URINE NEGATIVE (NEGATIVE); NITRITE,URINE NEGATIVE (NEGATIVE); PHENCYCLIDINE SCREEN,URINE NEGATIVE (NEGATIVE); PROTEIN,URINE DIPSTICK TRACE (NEGATIVE)
[2017-06-04 22:47] LABS: BILIRUBIN,URINE NEGATIVE (NEGATIVE); URINE UROBILINOGEN 0.2 mg/dL (0.2 - 1)
[2017-06-04 23:00] LABS: BACTERIA,URINE FEW /HPF; EPITHELIAL CELLS,URINE MODERATE /LPF; WBC,URINE (MAN) 0-5 /HPF (0-5)
[2017-06-04] MEDS ORDERED: IOPAMIDOL 370 MG/ML 200 ML INFUS..BTL INJ ONE (23:18)
[2017-06-04] MEDS ORDERED: SODIUM CHLORIDE 0.9% 50ML 50 ML ONE (23:18)
--- NOTE | 2017-06-04 23:45 | Diagnostic Imaging Report ---
EXAM: CT Chest WITH contrast 06/04/2017 10:23 PM INDICATION: Pulmonary embolism, shortness of breath COMPARISON: None TECHNIQUE: Chest was scanned utilizing a multidetector helical scanner from the lung apex through the level of the diaphragm after administration of IV contrast. Thin section reconstructions were obtained with special concentration on the pulmonary arteries. Coronal and sagittal reformations were obtained. Pulmonary embolism protocol was performed. IV CONTRAST: 14 cc of Isovue-370 RADIATION DOSE: Total DLP: 453.98 mGy*cm Estimated effective dose: (DLP x 0.014 x size factor) mSv COMPLICATIONS: None FINDINGS: LINES/ TUBES: None. LUNGS AND AIRWAYS: No filling defect is identified within the pulmonary arteries to the segmental level. The lungs are unremarkable. Airways are normal. PLEURA: The pleural spaces are clear. HEART AND MEDIASTINUM: The thyroid gland is normal. No mediastinal, hilar or axillary lymphadenopathy. The heart is normal in size.. There is no pericardial effusion. . Main pulmonary artery measures 2.1 cm in diameter , within normal limits. UPPER ABDOMEN: Limited non-contrast views of the upper abdomen show no abnormality within the visualized liver, spleen, pancreas, or kidneys. The adrenal glands are normal. BONES: The visualized bony thorax is within normal limits. SOFT TISSUES: Bilateral retropectoral breast implants. IMPRESSION: 1. No evidence of acute pulmonary embolism. 2. No acute intrathoracic abnormality. Signed by: Dr. Brandon Gunter M.D. on 06/04/2017 11:42 PM
[2017-06-04] MEDS ORDERED: MORPHINE SULFATE 2 MG/ML SYR IV STA (23:48)
[2017-06-05] MEDS ORDERED: LORAZEPAM INJ 2 MG/ML VIAL IV ONE
[2017-06-05 04:27] LABS: CREATINE KINASE MB 1.1 ng/mL (0-5.0)
[2017-06-05] MEDS: MORPHINE SULFATE 2 MG/ML SYR IV PRN ×4 (07:45→21:34)
[2017-06-05] MEDS: ASPIRIN 81 MG ENTERIC COATED PO SCH (10:04)
[2017-06-05 11:30] VITALS: BP 112/79
[2017-06-05 11:50] LABS: CHOL/HDL RATIO 2.4 (3.0-3.6)
[2017-06-05 12:37] VITALS: BP 113/70
[2017-06-05] MEDS: FAMOTIDINE 20 MG TAB PO SCH (16:51)
[2017-06-05] MEDS: METOPROLOL TARTRATE 50 MG TAB PO SCH (16:51)
[2017-06-05] MEDS: ENOXAPARIN SOD INJ 40 MG/0.4 ML SYR SC SCH (16:53)
--- NOTE | 2017-06-05 17:13 | Consultation ---
DATE OF CONSULTATION: June 05, 2017 CARDIOLOGY CONSULTATION REQUESTING PHYSICIAN: Dr. Ronaldo Thomas. REASON FOR CONSULTATION: Chest pain. HISTORY OF PRESENT ILLNESS: This is a 36-year-old woman with history of supraventricular tachycardia, who presented with complaints of chest pain. The patient was admitted earlier this month with an episode of supraventricular tachycardia with heart rates in the 200s. In this setting, she had an elevated troponin which was thought to be secondary to demand ischemia. She was converted to normal sinus rhythm with 6 mg of adenosine and started on metoprolol tartrate. She was discharged home for outpatient ischemic evaluation. On Tuesday she had another episode of palpitations and returned to the ER, for which she was converted back to normal sinus rhythm with an additional 6 mg of adenosine. She was subsequently discharged home. However, yesterday she had been sitting at a restaurant when she began to feel chest tightness 6 to 7 out of 10 in severity associated with shortness of breath. This pain lasted several hours, and she presented to the ER for further evaluation. She denied any palpitations in this setting, and she has since ruled out for a myocardial infarction with serial cardiac biomarkers. REVIEW OF SYSTEMS: Negative except as per HPI. PAST MEDICAL HISTORY: Supraventricular tachycardia. PAST SURGICAL HISTORY 1. Tubal ligation. 1. Breast implants. SOCIAL HISTORY: One pack a day since the age of 15. Occasional alcohol. Remote cocaine. FAMILY HISTORY: Noncontributory. ALLERGIES: PLEASE SEE EMR. MEDICATIONS: Please see the medication list. PHYSICAL EXAMINATION VITAL SIGNS: Temperature 97.2 degrees, pulse 96, respiratory rate 16, blood pressure 112/79, oxygen saturation 98% on room air. GENERAL: A well-developed, well-nourished woman in no acute distress, awake and alert. HEENT: Normocephalic, atraumatic. Pupils equal, no scleral icterus. NECK: Supple. No thyromegaly or cervical lymphadenopathy, no carotid bruits. LUNGS: Clear to auscultation bilaterally. No wheezes or crackles. CARDIOVASCULAR: Normal rate, regular rhythm. No murmur. Normal S1 and S2. ABDOMEN: Soft, nontender. EXTREMITIES: No edema. LABS: Sodium 137, potassium 3.8, chloride 103, CO2 22, creatinine 0.73. Troponin 0.008. EKG: Sinus rhythm. Short OK interval. Possible left atrial enlargement. Left ventricular hypertrophy. Inferior infarct age undetermined. CHEST X-RAY: No evidence of acute pulmonary embolism. No acute intrathoracic abnormality. IMPRESSION 1. Chest pain. 2. History of supraventricular tachycardia. 3. Tobacco abuse. RECOMMENDATIONS: Patient was discharged on metoprolol tartrate 25 mg p.o. b.i.d. We will increase. She was initially scheduled for a cardiac catheterization on Tuesday. However, given her admission with chest pain, we will proceed with cardiac catheterization tomorrow. Thank you for this consult. We will continue to follow. Job#: [id number] EV MTDD
[2017-06-05 19:10] VITALS: BP 142/69
--- NOTE | 2017-06-05 19:11 | History and Physical ---
PRIMARY CARE PHYSICIAN: Dr. José Antonio Moody. CARDIOLOGY: Dr. Grijalva. CHIEF COMPLAINT: Chest palpitation and chest discomfort. HISTORY OF PRESENT ILLNESS: A 36-year-old woman with a history of SVT and alcohol abuse as well as cigarette abuse, now developing chest palpitations and precordial chest discomfort. She stated that this has been ongoing for about 2 days. She has continued to drink a 6 pack of beer per day and smoke one pack of cigarettes per day. PAST MEDICAL HISTORY: SVT, elevated troponin, tobacco abuse, alcohol abuse. PAST SURGICAL HISTORY: Tubal ligation and breast augmentation. ALLERGIES: PER ELECTRONIC MEDICAL RECORDS. FAMILY HISTORY, SOCIAL HISTORY: The patient is and is in the process of . She has one pack per day cigarette use and 6 beers per day alcohol use. She works in [employer]. MEDICATIONS: Per electronic medical records. REVIEW OF SYSTEMS: Denies any dizziness, fever or chills. PHYSICAL EXAMINATION VITAL SIGNS: Reviewed. GENERAL APPEARANCE: A tired-appearing woman resting in the bed. HEENT: Anicteric. Pupils responsive to light. No oral lesions. CARDIOVASCULAR: Normal S1 and S2. No murmurs audible. ABDOMEN: Soft and nontender. Nondistended. EXTREMITIES: There is no edema or calf tenderness. NEUROLOGIC: Alert and oriented x3. Moving all extremities. MUSCULOSKELETAL: No chest wall tenderness. SKIN: Dry. PSYCHIATRIC: Flat affect. LABS: Reviewed. MEDICATIONS: Reviewed. ASSESSMENT AND WOMAN: A 36-year-old woman. 1. Alcohol intoxication. Consult social work faculty member to assist in providing resources and Alcoholics Anonymous. 2. Chest palpitations/discomfort. This is likely typical chest pain. Will consult Dr. Grijalva, traffic court referee. The patient says that she was scheduled for an ablation soon. 3. History of supraventricular tachycardia. Consult Dr. Grijalva. 4. Cigarette abuse. Counseled on cessation. 5. Likely depression. She needs further screening and treatment as an outpatient if appropriate. 6. Elevated platelets. Will need followup as an outpatient. 7. Elevated CPK, likely secondary to alcohol intoxication. 8. Obtain lipid panel. TSH normal. 9. Prophylactic: Use Lovenox and Pepcid. DISPOSITION: Cardiology consultation. Monitor closely with telemetry. Job#: [id number] GH
[2017-06-05 20:23] VITALS: BP 142/69
[2017-06-05] MEDS: ONDANSETRON HCL INJ 2 MG/ML VIAL IV PRN (21:34)
[2017-06-06] VITALS (8 sets, daily range): BP systolic 105–144; BP diastolic 59–76
[2017-06-06] MEDS ORDERED: METOPROLOL TART50 MG PO (07:21)
[2017-06-06] MEDS ORDERED: FAMOTIDINE20 MG PO (07:21)
[2017-06-06] MEDS ORDERED: ASPIRIN EC81 MG PO (07:21)
[2017-06-06] MEDS: FAMOTIDINE 20 MG TAB PO SCH ×2 (07:30→16:30)
[2017-06-06 07:41] LABS: CHOL/HDL RATIO 2.8 (3.0-3.6)
[2017-06-06] MEDS: METOPROLOL TARTRATE 50 MG TAB PO SCH ×2 (08:40→17:00)
[2017-06-06] MEDS: ASPIRIN 81 MG ENTERIC COATED PO SCH (08:40)
[2017-06-06] MEDS: ONDANSETRON HCL INJ 2 MG/ML VIAL IV PRN (09:15)
[2017-06-06] MEDS: MORPHINE SULFATE 2 MG/ML SYR IV PRN ×3 (09:15→21:26)
--- NOTE | 2017-06-06 11:10 | Progress Note ---
DATE: June 06, 2017 CARDIOLOGY PROGRESS NOTE SUBJECTIVE: The patient still is complaining of chest pain. She reports she feels like she cannot catch her breath. She is n.p.o. for cardiac catheterization today. OBJECTIVE VITALS: Temperature 97.6 degrees, pulse 54, respiratory rate 19, blood pressure 109/59, oxygen saturation 98% on room air. GENERAL: Awake, alert, in no acute distress. LUNGS: Clear to auscultation bilaterally. No wheezes or crackles. CARDIOVASCULAR: Normal rate, regular rhythm. No murmur. Normal S1 and S2. ABDOMEN: Soft, nontender. EXTREMITIES: No edema. CARDIAC MEDICATIONS: Metoprolol tartrate 50 mg p.o. b.i.d. LABS: Cholesterol 180, triglycerides 189, HDL 64, LDL 78. TELEMETRY: Normal sinus rhythm. IMPRESSION 1. Chest pain. 2. History of supraventricular tachycardia. 3. Tobacco abuse. RECOMMENDATIONS: Metoprolol has been increased to 50 mg p.o. b.i.d. She is n.p.o. for cardiac catheterization today. Further recommendations pending cath results. Thank you for this consult. We will continue to follow. Job#: [id number]
[2017-06-06] MEDS ORDERED: ACETAMINOPHEN 325 MG TAB PO PRN (11:30)
[2017-06-06] MEDS: ONDANSETRON HCL 4 MG ORAL DISINTEGRATING TAB PO PRN ×2 (14:15→21:26)
[2017-06-06] MEDS ORDERED: MIDAZOLAM HCL 2 MG/2 ML VIAL ONE (16:32)
[2017-06-06] MEDS ORDERED: LIDOCAINE HCL 2% LOCAL 20 ML VIAL ONE (16:32)
[2017-06-06] MEDS ORDERED: FENTANYL CITRATE/PF 100MCG/2 ML INJ ONE (16:32)
[2017-06-06] MEDS ORDERED: HEPARIN SOD/SOD CHLORIDE 2,000 ML ONE (16:33)
[2017-06-06] MEDS ORDERED: SODIUM CHLORIDE 0.9% 1000ML 1,000 ML ONE (16:33)
[2017-06-06] MEDS ORDERED: IOPAMIDOL 370 MG/ML 200 ML INFUS..BTL INJ ONE (16:33)
[2017-06-06] MEDS: ENOXAPARIN SOD INJ 40 MG/0.4 ML SYR SC SCH (17:00)
--- NOTE | 2017-06-06 19:47 | Operative Report ---
DATE OF PROCEDURE: June 06, 2017 PROCEDURES 1. Selective coronary angiography x2. 2. Left heart catheterization. SEDATION: Midazolam 2 mg and fentanyl 75 mcg. CONSENT: Informed consent was obtained and documented in the chart. PROCEDURE IN DETAIL: The patient was brought to the cardiac catheterization laboratory in a fasting state after written informed consent was obtained. Bilateral groins were prepped and draped in the usual sterile fashion. Systemic sedation was given as above. Then 1% lidocaine was infiltrated over the right groin to achieve local anesthesia. The right femoral artery was accessed via a micropuncture needle. A 5-Arabic sheath was placed via modified Seldinger technique. A 5-Arabic JL4 catheter was inserted and advanced into the ascending aorta over a J wire. The left main coronary artery was cannulated under fluoroscopic guidance. Selective coronary angiography was performed. The JL4 was removed, and a 5-Arabic JR4 catheter was inserted and advanced into the ascending aorta over a J wire. The right coronary artery was cannulated under fluoroscopic guidance. Selective coronary angiography was performed. The JR4 catheter was removed. Angiogram was performed of the right femoral artery. The 5-Arabic sheath was then removed and manual compression was applied until adequate hemostasis was achieved. The patient tolerated the procedure well without any complications. Estimated blood loss less than 5 mL. FINDINGS: 1. The left main coronary artery bifurcates into the left anterior descending and left circumflex systems. The left anterior descending is a moderate caliber vessel that wraps around the apex. It gives rise to branching first diagonal. There was no angiographic evidence of disease. 2. The left circumflex gives rise to a small OM-1 as well as a large OM-2 and OM-3. There was no angiographic evidence of disease in the circumflex. 3. The right coronary artery gives rise to the posterior descending artery and was free of disease as well. 4. Left ventricular pressure was 118/21 mmHg. 5. LVEDP was 24 mmHg. CONCLUSION: Normal coronary arteries. Job#: [id number]
[2017-06-06] MEDS ORDERED: DIPHENHYDRAMINE HCL 25 MG CAP PO PRN (22:00)
[2017-06-06] MEDS ORDERED: BENAZEPRIL HCL 10 MG TAB PO PRN (22:00)
[2017-06-07 00:09] VITALS: BP 100/58
== END 2017-06-07 00:58 | disposition home or self-care (01) ==
LOC: ER 20:30 → ERHOLD 06-05 00:08 → IMCU 06-05 11:14
PROVIDERS: ADMIT Internal Medicine; ATTEND Internal Medicine
PROC: 4A023N7 Measurement of Cardiac Sampling and Pressure, Left Heart, Percutaneous Approach (ICD-10-PCS; principal; 2017-06-06)
PROC: B2111ZZ Fluoroscopy of Multiple Coronary Arteries using Low Osmolar Contrast (ICD-10-PCS; 2017-06-06)
PROC: B2151ZZ Fluoroscopy of Left Heart using Low Osmolar Contrast (ICD-10-PCS; 2017-06-06)
DX: R07.9 Chest pain, unspecified (principal); F10.10 Alcohol abuse, uncomplicated; Z72.0 Tobacco use; R00.2 Palpitations; F10.120 Alcohol abuse with intoxication, uncomplicated
CPT/HCPCS: 36415 ×2; 71045; 71260; 77002; 80053; 80061 ×2; 80307; 80320; 81001; 82150; 82550 ×3; 82553 ×3; 83690; 84436; 84443; 84479; 84484 ×3; 84702; 85025; 85379; 93005; 93458; 99284; C1769; G0378 ×3; J1885; J2001; J2060; J2250; J2270 ×2; J2405 ×2; J7030; Q9967 ×2; 36140; 93452